=== PATIENT | male | born 1980 | race Caucasian/White ===

== ENCOUNTER 2019-12-10 09:32 | Emergency (ER) | payer SELFPAY ==
[2019-12-10 09:39] VITALS: BP 163/92; PULSE 79; TEMP 36.6; O2SAT 94
--- NOTE | 2019-12-10 09:49 | W.ED.GENAD ---
Discharge Plan Disposition Patient Disposition: HOME Condition: Improving Discharge Details Chief Complaint: EyeProblem Clinical Impression: Abrasion of cornea, left Primary Care Provider: None,None ED Provider: Claude Martinez Discharge Instructions Instructions: Corneal Abrasion (ED) Additional Instructions: Erythromycin ointment to the left eye 4 times daily for 5 to 6 days time. We will refer [facility] to [facility] care for recheck. Cool compress to reduce discomfort. May use Tylenol and/or ibuprofen as needed for pain. Return to ER for any acute concern. 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 He was using a router yesterday when he felt a foreign object into the left eye. Persistent pain this morning despite rinsing of the eye yesterday. Visual acuity is 20 out of 20. He has evidence on slit lamp examination of a corneal abrasion left side and debris was removed from the eye with irrigation. Will place him on erythromycin ointment. Lastly follow-up with [facility] eye care for recheck. Understands homecare, follow-up, as well as indications to seek reevaluation. HPI General Mode of arrival: ambulatory. Date/Time Provider Initiated Documentation: 12/10/19 09:35. Limitations to Documentation: no limitations. Information obtained by: patient. History of Present Illness 39 year old M presents to the emergency department with the chief complaint of Left eye foreign body sensation since yesterday., described as moderate, Quality is described as dull and constant, and is localized to the eyes and left. Patient reports no radiation. Patient started experiencing this hour(s) and it has been constant. No relieving factors improve symptom(s), No exacerbating factors reported . Patient notes no other symptoms.. Patient did receive the following treatments prior to arrival, none General Stated Complaint: EyeProblem ANGEL: 3 Review of Systems Narrative: Has recently been well. Irrigated yesterday. Increased discomfort this morning. No significant change to vision. 6 systems reviewed and otherwise negative [facility] Social History Smoking/Tobacco Use Status: Current every day Tobacco Type: cigarettes Alcohol Intake: never Drug use: Never Substance use type: does not use Do you feel safe at home: Yes Do you feel safe in your relationship?: Yes Exam Narrative Exam Narrative: GEN: awake, alert, oriented 3. Pleasant, well groomed, interactive. HEAD: Normocephalic, atraumatic ENT: Mucous membranes moist, oropharynx unremarkable, External ear exam unremarkable EYES: PERRL, EOMI. left conjunctival injection. Visual acuity per nursing notes. Fluorescein exam performed with left temporal corneal abrasion outside the axis of vision. Number of small pieces of foreign debris were irrigated out of the eye. No retained foreign body was appreciated. Sean sign was negative. NECK: Full ROM, no ERIC, no menigismus CHEST/RESP: No respiratory distress. Neuro: Grossly normal neurologic exam, conversant, interactive. Psych: Speech fluent, thoughts congruent, affect normal Course Vital Signs Vital signs: Vital Signs Temperature 36.6 C 12/10/19 09:39 Pulse 79 12/10/19 09:39 Blood Pressure 163/92 H 12/10/19 09:39 Pulse Oximetry 94 L 12/10/19 09:39 Temperature 36.6 C 12/10/19 09:39 Temperature Source Temporal Artery Scan 12/10/19 09:39 Pulse 79 12/10/19 09:39 Respiratory Effort Non-Labored 12/10/19 09:43 Blood Pressure 163/92 H 12/10/19 09:39 Blood Pressure Position Sitting 12/10/19 09:39 Pulse Oximetry 94 L 12/10/19 09:39 Oxygen Delivery Method Room Air 12/10/19 09:39 Oxygen Flow Rate 0 12/10/19 09:39
[2019-12-10] MEDS: Fluorescein STRIPS 100/BOX 1 MG OP (09:53)
[2019-12-10] MEDS: Erythromycin Ophth Oint 3.5 GM TUBE OP (09:53)
[2019-12-10] MEDS: Balanced Salt Solution 15 ML BTL OP (09:53)
[2019-12-10] MEDS: Tetracaine 0.5% 4 ML BTL OP (09:54)
--- NOTE | 2019-12-10 10:09 | NUR.NOTE ---
advertising statistical clerk passed referral to Care Management for the patient to see [facility] eye care for corneal abrasion with in the week. @1010 12/10/2019 Nursing Note:
--- NOTE | 2019-12-10 10:38 | CMPROGNOTE_ITS ---
- If Service Date Differs Date of service: 12/10/19 Time of Service: 10:38 Care Management Progress Note CM coordinated referral to [facility], as requested by ED provider.
--- NOTE | 2019-12-10 10:38 | PDOC.ERCMPRO ---
- If Service Date Differs Date of service: 12/10/19 Time of Service: 10:38 Care Management Progress Note CM coordinated referral to [facility], as requested by ED provider.
== END 2019-12-10 10:08 | disposition home or self-care (01) ==
PROVIDERS: Emergency Provider Emergency Medicine
DX: T15.01XA Foreign body in cornea, right eye, initial encounter (principal); X58.XXXA Exposure to other specified factors, initial encounter
CPT/HCPCS: 65222; 99283

== ENCOUNTER 2022-10-03 13:37 | Outpatient (CLI) | payer MEDICAID, SELFPAY ==
--- NOTE | 2022-10-03 13:50 | CCCE_ITS ---
Date of service: 10/03/22 Time of Service: 11:00 Comprehensive Care Clinic Note Note: [id number] [place], [place]? [id number] Initial [facility] Visit Information New or Remote Diagnosis of HCV (1-2 hours) Name: Bonifacio Jacob ? Date of :? 1980? Primary Care Provider: None Date of Service: 10/03/2022 SUBJECTIVE CC: ?I was told I have Hep C and want to get it treated. A lot of blood work was done at ([facility]) in [place] through the clinic ([facility]) where I go for methadone.? HPI: Bonifacio is a 42 year old man who has a significant substance use history starting at age 24. He had no substance use prior to that including ETOH or tobacco. He states, ?I got into the wrong crowd?,?and started snorting opiate pills recreationally. About age 29 he was addicted and using every day or he would develop marked, acute opiate abstinence syndrome symptoms. He started using IV soon after that. About 3 years ago, after a relapse, he switched to fentanyl because his tolerance was such he could no longer afford the pills to stop the symptoms. He admits to sharing needles with multiple known and unknown sources stating, ?I would use anything to stop the sickness, even used needles that still had blood in them!? He and his female significant other, the Mother of 2 of his children, shared and she is also HCV positive, although she was not positive a few years ago when their son, who of SIDS, was born. Bonifacio first started medication assisted treatment (MAT) for severe opiate use disorder in 2013 with buprenorphine/naloxone (Suboxone), switched to methadone, left treatment, returned on Suboxone, relapsed and left treatment again in 2018 returning about 1 year ago on methadone. He relapsed again but this time did not leave MAT, rather in 2021, he was admitted to and completed an inpatient rehab at [facility] in [place], [place]. He did remarkably well, gained time of 28 days away from illicit use which he has continued and has remained drug free, and realized insight into his addiction and relapses. ?I?m ready to live my life, be a good and father and get healthy.? He is determined to remain in recovery and states so is his sig other who is at [facility] now. They will be reunited with their 4 year old daughter in a month or so if successful recovery continues. ROS Constitutional: some C/O fatigue but has a demanding work schedule. Skin: Denies rash, abscesses, open lesions. Rarely sweats when not in withdrawal. Head: Not prone to headache Eyes: Denies visual impairment, no yellowing of sclera ever noted Ear/Nose/Throat: Denies diminished hearing, ear aches, nose drainage, epistasis, sore throat or swelling Mouth/Teeth: Has some caries, no bleeding gums Neck: Denies swelling, stiffness, pain CV: Denies chest pain, pressure, palpitations Respiratory: Denies chronic cough or dyspnea GI: Denies bloating, N/V/D, heartburn : No complaints, denies ever having tea colored urine Musculoskeletal: No joint swelling or erythema Endocrine: Thyroid non-palp Lymphatic: No adenopathy Hematologic: Denies unusual bleeding, bruising Immunologic: Denies night sweats, frequent infection illnesses Psychiatric: Denies mood swings, hallucinations, admits to some anxiety about HCV infection, never SI/HI. Allergies/Sensitivities: NKDA Current Medications: methadone (MTD) 100mg po daily Past medications Ineffective: None Past Medical History: first + HCV Ab test with follow up blood work was late in 2021. Has a H/O + PPD and TB diagnosis treated in the remote past. Unclear what F/U he has had for this. Ow he states has been very healthy. Past Surgical History: None Past Psychiatric History: None Social History: Place of : [place] Gender: Male Racial Distribution: Primary Language: Macedonian Secondary Language(s): None Current County, State of Residence: [place], [place] Marital Status: Female sig other on 9 years Family Size: 3 Pets: none now Housing: renting Incarceration History: + incarceration x 48 months years ago. No pending charges. History: None Highest Grade Completed: HS grad ? Able to read? Yes Employment: Type of work presently: 2 jobs, poultry farm laborer, in the past: installing granite counter tops. ? Income(s)/Means of Financial Support: Working ? Occupational Exposures: Construction Health Insurance: Medicaid - active ? Other payment source: None ? Coverage Issues: None Substance Abuse History: ? Tobacco: Y Smoker ? Type/Amount: 1 ppd cigarettes ? ETOH: Denies ? Illicit Drug Use: None since completed rehab ? Rx Drug Dependence: None now ? + remote past starting at age 24 ? recreational for about 5 years and then became a daily dependence. ? IVDU Hx: yes >10 years Overdose HX: Denies Treatment HX: See HPI Other Psychosocial Considerations: None Family History ? Mother: at age 55 due to complications of COPD ? Father: age 61 ? alive/healthy ? Siblings: ? Children: 3 daughters with former partner with whom they live and he has visits, 2 children with current partner of 9 years, 1 son from SIDS, 1 daughter now 4 years old and in temporary custody with maternal GM through DCF with whom he has visits. Will regain full custody shortly if recovery is sustained. All living children are healthy. ? Grand Parents: ? Extended: No addiction history Immunization History ? Tetanus/TDAP: No record ? Hepatitis A: No record ? Hepatitis B: No record ? Flu Vaccine: Recorded in [facility] Imms. Registry that he had 06/12/2014 at [facility] in [place] ? Pneumovax 23: No record ? Prevnar 13: No record ? Shingrix: NA ? Menactra: NA ? Other: Had Moderna Covid vaccine #1. 01/11/2021, #2. 02/05/2021 Health Maintenance: None Lipids/Glucose: Not measured ID Screenings ? PPD/Quantiferron: H/O TB ? treated in remote past and unclear of F/U. OBJECTIVE Height: 6?0? Weight: 200 lbs. Temp: 97.8 Pulse: 84 Respirations: 14 Blood Pressure: 126/80 General: WDWNL Skin: W/D, good color. Multiple faded track renner both arms. No rash or open lesions Head: NCAT Eyes: pupils 3mm w symmetry, non-icteric Ears/Nose: NE, masked Mouth/Teeth: NE, masked Pharynx: NE, masked Neck: Supple, non-tender CV/Pulses: RRR, No MCRG Chest Lungs: Lungs clear in all lobes Abdomen: NABS, NT, ND, no OGM, Liver edge palpates at the costal level and does not cross the midline, smooth Extremities: No edema, deformities Musculoskeletal: Neuro: Gait strong, steady, no tremor or tics : NE Pelvic: NA Rectal: NE Lymphatic: No adenopathy Psychiatric: - appearance: well groomed - eye contact: good - attitude: cooperative - speech: clear/coherent - affect: appropriate - mood: euthymic, mildly anxious - memory: short-term intact, local company intermodal truck driver intact - self-perception: wnl - motor activity: normal - orientation: intact - attention: intact - thought content: wnl - perceptions: wnl - judgement: intact - insight: good Recent Lab Work Results: 08/10/2022: HCV RNA PCR QUANT: 3,250,000 IU/ml CBC: WBC: 6.6 RBC: 4.9 Hgb: 15.0 Hct: 44.6 MCV: 90.7 MCH: 30.5 MCHC: 33.6 Platelets: 191 Neutrophils: 43% Lymphs: 44% Monos: 6% Eos: 2% CMP: NA+: 137 K+: 4.2 Chloride: 100 CO2: 31 Alk Phos: 140 AST: 200 ALT: 342 BUN: 12 Creat: 0.81 Glucose: 106 Ca+ 9.1 Total Protein: 8.9 Albumin: 3.6 Bili Total: 0.7 09/01/2022 Repeat HCV RNA PCR needed for genotypic testin,540,000 HCV Genotype sent to [facility]: Indeterminate and report states RNA detected and HCV resolution testing is ordered. 09/08/2022 Repeat HCV RNA genotypic testing ordered, redrawn and sent to [facility] with the same results and report, No report as of yet on the HCV resolution testing that [facility] ordered. 08/10 and : HBV Core Antibody (cAB): negative [No HBV surface Antibody (sAB) or Antigen (Ag) test was performed as requested] HAB Total Antibody: Negative HIV 1&2 Ab 4th gen [facility]: Negative Syphilis Serology: Negative ASSESSMENT/PLAN Chronic Active HCV Infection in a patient with a long H/O IVDU in recovery for 4 months since successfully completing a full in patient rehab now stable on current dose of MTD eager to have HCV treatment. *MD visit scheduled: Will discuss with [facility] ID providers as to how to proceed with the genotype having been indeterminate x 2 as drawn through [facility] in [place] *Release of Records: Signed for old records, blood work not brought here today by the patient *Social Work/Psychiatry referral: Not at this time *Lab work ordered (if not done recently): - Attempt to get [facility]?s further genotypic resolution testing result. - Since he is treatment naive he does not need HCV resistance testing - Consider with next blood work LDH/GGT, Magnesium & Phosphorus - Hepatitis Screening partially done and he needs HBV Ag/sAb *Diagnostic testing: Vibration Controlled Transient Elastography (VCTE ? commonly known as a Fibroscan) is ordered, and scheduled at [facility] for 10/05/2022 at 2:30 pm *Immunizations: He needs some but will plan after knowing the status of his HBV sAB and Ag. Provider of Care:? Etta Baird, MSN, [facility]
== END 2022-10-03 13:38 | disposition home or self-care (01) ==
LOC: CCC 13:44
PROVIDERS: Visit Provider Nurse Practitioner Family
DX: B19.20 Unspecified viral hepatitis C without hepatic coma (principal); F11.21 Opioid dependence, in remission; Z86.11 Personal history of tuberculosis
CPT/HCPCS: 99205